=== PATIENT | female | born 1970 | race Caucasian/White ===

== ENCOUNTER 2022-11-30 10:06 | Emergency (ER) | payer OTHER ==
[~2022-11-30] VITALS: Ht 152.4 cm; Wt 90.7 kg
[~2022-11-30 10:06] MED LIST: ACEBUTCAFT PO; ALBIPROI INH; ALBU90OI INH; AMOCLA875; AMOCLA875 PO; AMOX500 PO; CEPH500 PO; CIPR500 PO; CODGUAEL PO; CRUTCH3 USE; DOXY100 PO; ERYT.5TO OD; FLUT.05NI; HYDACE10B PO; HYDACE5 PO; IBUP200; IBUP400 PO; IBUP800 PO; MARIJUANA; MOMENI; NAPR500 PO; NEOPOLHCSU OT; Naprosyn500 MG PO; OXYACE5T PO; PARO20 PO; PENVK500 PO; PRED20 PO; RXHYDACE PO; RXNEOPOLHC AU; RXOXYACE PO; SULTRIDS PO; TRAZ100 PO; Veetids 500500 MG PO
[2022-11-30 10:35] LABS: BASOPHILS ABSOLUTE AUTO 0.06 K/mm3 (0.00-0.23); BASOPHILS PERCENT AUTO 1 % (0-2); EOSINOPHILS ABSOLUTE AUTO 0.13 K/mm3 (0.00-0.68); EOSINOPHILS PERCENT AUTO 2 % (0-6); Hematocrit 41.6 % (33.0-51.0); Hemoglobin 14.2 g/dL (11.5-16.0); IMMATURE GRAN ABSOLUTE AUTO 0.02 K/mm3 (0.00-0.10); IMMATURE GRAN PERCENT AUTO 0 % (0-1); LYMPHOCYTES PERCENT AUTO 21 % (21-46); MONOCYTES ABSOLUTE AUTO 0.41 K/mm3 (0.16-1.47); MONOCYTES PERCENT AUTO 6 % (4-13); Mean Corpuscular HGB 30.2 pg (26.0-34.0); Mean Corpuscular HGB Conc 34.1 g/dL (31.5-36.5); Mean Corpuscular Volume 89 fL (80-100); Mean Platelet Volume 9.9 fL (9.1-12.4); NEUTROPHILS ABSOLUTE AUTO 5.24 K/mm3 (1.96-9.15); NEUTROPHILS PERCENT AUTO 70 % (41-73); Platelet Count 343 K/mm3 (150-400); RDW Coefficient Variation 14.1 % (11.7-14.2); White Blood Cell Count 7.46 K/mm3 (4.00-11.30)
[2022-11-30 10:53] LABS: Bun/Creatinine Ratio 21.3 (12.0-20.0); Creatinine, Blood 0.8 mg/dL (0.40-1.00); Potassium, Blood 3.7 mmol/L (3.5-5.5)
[2022-11-30] MEDS ORDERED: LISI5 PO ×2 (12:15→12:50)
[2022-11-30] MEDS ORDERED: ATOR10 PO (12:15)
[2022-11-30] MEDS ORDERED: LASIX20 M2 PO (12:15)
[2022-11-30] MEDS ORDERED: METF500 PO ×2 (12:15→12:50)
[2022-11-30] MEDS ORDERED: METO25ER PO ×2 (12:16→12:50)
[2022-11-30 12:45] VITALS: BP 140/91
[2022-11-30] MEDS ORDERED: ATOR40TA PO (12:50)
[2022-11-30] MEDS ORDERED: AZIT250 PO (12:50)
[2022-11-30] MEDS ORDERED: FURO20 PO (12:50)
[2022-11-30] MEDS ORDERED: PRED20 PO (12:50)
== END 2022-11-30 13:03 | disposition home or self-care (01) ==
LOC: ER 10:06
PROVIDERS: Student in an Organized Health Care Education/Training Program
DX: J44.1 Chronic obstructive pulmonary disease with (acute) exacerbation (principal); I11.0 Hypertensive heart disease with heart failure; I50.21 Acute systolic (congestive) heart failure; E78.5 Hyperlipidemia, unspecified; F17.210 Nicotine dependence, cigarettes, uncomplicated; Z91.040 Latex allergy status; Z91.048 Other nonmedicinal substance allergy status; Z79.899 Other long term (current) drug therapy; Z79.84 Long term (current) use of oral hypoglycemic drugs; E11.9 Type 2 diabetes mellitus without complications
CPT/HCPCS: 71046; 80048; 83735; 83880; 84145; 85025; 93005; 93010; 94640; 94664; 96365; 96375; 99285-25; J1940; J3475

== ENCOUNTER → 2023-08-26 | Outpatient (CLI) | payer OTHER ==
[~2023-08-26] MED LIST changes: +ATOR10 PO; +ATOR40TA PO; +AZIT250 PO; +FURO20 PO; +LASIX20 M2 PO; +LISI5 PO; +Lasix20 MG PO; +METF500 PO; +METO25ER PO; +Toprol Xl50 MG PO
[2023-08-26 20:03] LABS: BASOPHILS PERCENT AUTO 1 % (0-2); EOSINOPHILS ABSOLUTE AUTO 0.19 K/mm3 (0.00-0.68); EOSINOPHILS PERCENT AUTO 2 % (0-6); Hematocrit 44.2 % (33.0-51.0); Hemoglobin 15.1 g/dL (11.5-16.0); IMMATURE GRAN ABSOLUTE AUTO 0.05 K/mm3 (0.00-0.10); IMMATURE GRAN PERCENT AUTO 1 % (0-1); LYMPHOCYTES ABSOLUTE AUTO 2.13 K/mm3 (0.84-5.20); LYMPHOCYTES PERCENT AUTO 22 % (21-46); MONOCYTES PERCENT AUTO 5 % (4-13); Mean Corpuscular HGB 29.9 pg (26.0-34.0); Mean Corpuscular HGB Conc 34.2 g/dL (31.5-36.5); Mean Corpuscular Volume 88 fL (80-100); Mean Platelet Volume 10.3 fL (9.1-12.4); NEUTROPHILS ABSOLUTE AUTO 6.59 K/mm3 (1.96-9.15); NEUTROPHILS PERCENT AUTO 69 % (41-73); Platelet Count 370 K/mm3 (150-400); RDW Coefficient Variation 13.1 % (11.7-14.2); RDW Standard Deviation 41.4 fL (35.1-46.3); Red Blood Cell Count 5.05 M/mm3 (3.80-5.20); White Blood Cell Count 9.56 K/mm3 (4.00-11.30)
[2023-08-26 20:07] LABS: CHOL/HDL RATIO 4.9; Cholesterol 201 mg/dL (50-200); HDL Cholesterol 41 mg/dL (>39); LDL/HDL RATIO 2.6; Low Density Lipoprotein Chol 105 mg/dL (0-110); Triglycerides 274 mg/dL (30-160); Very Low Density Lipoprot Chol 54 mg/dL (6-32)
[2023-08-26 20:47] LABS: Microalb/Creat Ratio UR, Rand Unable to Calculate mg/g (0.000-30.000); Microalbumin, Random Urine <5.000 mg/L (0.000-20.000)
== END | disposition home or self-care (01) ==
LOC: LAB 18:51 → LAB SHORT 18:51
PROVIDERS: Family Medicine
DX: E11.9 Type 2 diabetes mellitus without complications (principal)
CPT/HCPCS: 80061; 82043; 82570; 85025

== ENCOUNTER → 2023-09-07 | Outpatient (CLI) | payer OTHER | END | disposition home or self-care (01) | LOC: LAB 09:13 → LAB SHORT 09:13 | DX: L60.2 Onychogryphosis (principal); B35.1 Tinea unguium | CPT/HCPCS: 88305; 88312 ==

== ENCOUNTER → 2023-11-11 | Outpatient (CLI) | payer OTHER ==
[2023-11-11 18:43] LABS: CHOL/HDL RATIO 3.4; Cholesterol 184 mg/dL (50-200); HDL Cholesterol 54 mg/dL (>39); LDL/HDL RATIO 1.8; Low Density Lipoprotein Chol 99 mg/dL (0-110); Triglycerides 153 mg/dL (30-160); Very Low Density Lipoprot Chol 30 mg/dL (6-32)
== END ==
LOC: LAB SHORT 14:56 → LAB 14:56
PROVIDERS: Family Medicine
DX: E78.5 Hyperlipidemia, unspecified (principal)
CPT/HCPCS: 80061

== ENCOUNTER 2023-12-15 08:13 | Day surgery (SDC) | payer OTHER ==
[~2023-12-15] VITALS: Ht 162.6 cm; Wt 95.2 kg
[2023-12-15 10:47] VITALS: BP 110/84
== END 2023-12-15 23:11 | disposition home or self-care (01) ==
LOC: ORSCMMR 08:13 → ORD 09:30 → ORSCMMR 09:30
PROC: 0DBN8ZX Excision of Sigmoid Colon, Via Natural or Artificial Opening Endoscopic, Diagnostic (ICD-10-PCS; principal; 2023-12-15)
PROC: 0DBK8ZX Excision of Ascending Colon, Via Natural or Artificial Opening Endoscopic, Diagnostic (ICD-10-PCS; principal; 2023-12-15)
DX: Z12.11 Encounter for screening for malignant neoplasm of colon (principal); K63.5 Polyp of colon; E11.9 Type 2 diabetes mellitus without complications; K57.30 Diverticulosis of large intestine without perforation or abscess without bleeding; E78.00 Pure hypercholesterolemia, unspecified; I10 Essential (primary) hypertension; Z87.891 Personal history of nicotine dependence; Z68.37 Body mass index [BMI] 37.0-37.9, adult; Z79.899 Other long term (current) drug therapy